=== PATIENT | female | born 1975 | race Caucasian/White ===

== ENCOUNTER → 2018-02-22 | Outpatient (CLI) | payer BC ==
[2013-06-20 21:41] VITALS: BP 134/93
[~2018-02-22] MED LIST: SERTRALINE PO; SPRINTEC 35 MCG1 TAB PO
[2018-02-22 17:54] LABS: CLUE CELLS PRESENT (Not Observd)
== END ==
LOC: LAB 17:34
PROVIDERS: Nurse Practitioner Family
DX: N76.0 Acute vaginitis (principal)
CPT/HCPCS: Q0111

== ENCOUNTER → 2018-11-30 | Outpatient (CLI) | payer BC ==
[2013-06-20 21:41] VITALS: BP 134/93
[2018-11-30 17:24] LABS: CLUE CELLS PRESENT (Not Observd)
== END ==
LOC: LAB 15:46
PROVIDERS: Nurse Practitioner
DX: N76.0 Acute vaginitis (principal); N89.8 Other specified noninflammatory disorders of vagina
CPT/HCPCS: Q0111

== ENCOUNTER → 2019-02-16 | Outpatient (CLI) | payer BC ==
[2013-06-20 21:41] VITALS: BP 134/93
== END ==
LOC: MAMMO 08:28
DX: Z12.31 Encounter for screening mammogram for malignant neoplasm of breast (principal)

== ENCOUNTER → 2019-07-13 | Outpatient (CLI) | payer BC ==
[2013-06-20 21:41] VITALS: BP 134/93
[2019-07-13 16:13] LABS: BASO # 0.1 (0.02-0.10); EOS # 0.5 (0.04-0.40); EOS % 5.8 % (1.0-5.0); HEMATOCRIT 39.8 % (37.0-47.0); HEMOGLOBIN 12.6 g/dL (12.5-16.0); LYMPH# 2.1 (1.50-4.00); MEAN CELL VOLUME 84 fl (78-100); MEAN CORPUSCULAR HEMOGLOBIN 27 pg (27-31); MEAN CORPUSCULAR HGB CONC 32 g/dL (33-37); MEAN PLATELET VOLUME 9.6 fl (7.4-10.4); MONO # 0.6 (0.20-0.80); NEU # 4.7 (1.40-6.50); PLATELET COUNT 281 K/mm3 (130-400); RED BLOOD COUNT 4.73 M/mm3 (4.10-5.30); RED CELL DISTRIBUTION WIDTH 13.7 % (11.5-14.5)
[2019-07-13 16:33] LABS: ALBUMIN 4.2 g/dL (3.5-5.0); POTASSIUM 3.6 mmol/L (3.5-5.1)
[2019-07-13 16:35] LABS: CALCIUM 9.1 mg/dL (8.3-10.5)
[2019-07-13 16:36] LABS: TOTAL PROTEIN 7.3 g/dL (6.4-8.3)
[2019-07-13 16:38] LABS: TOTAL BILIRUBIN 0.2 mg/dL (0.2-1.2)
== END ==
LOC: LAB 16:01
PROVIDERS: Internal Medicine Gastroenterology
DX: R10.84 Generalized abdominal pain (principal); R19.7 Diarrhea, unspecified; R14.0 Abdominal distension (gaseous)

== ENCOUNTER → 2020-02-28 | Outpatient (CLI) | payer BC ==
[2013-06-20 21:41] VITALS: BP 134/93
== END ==
LOC: MAMMO 10:33
DX: Z12.31 Encounter for screening mammogram for malignant neoplasm of breast (principal)

== ENCOUNTER → 2020-03-22 | Outpatient (CLI) | payer BC ==
[2013-06-20 21:41] VITALS: BP 134/93
[2020-03-22 15:46] LABS: CLUE CELLS NOT OBSERVED (Not Observd)
== END ==
LOC: LAB 15:37
PROVIDERS: Family Medicine
DX: N76.0 Acute vaginitis (principal)
CPT/HCPCS: Q0111

== ENCOUNTER → 2020-07-31 | Outpatient (CLI) | payer BC ==
[2013-06-20 21:41] VITALS: BP 134/93
[2020-07-31 08:04] LABS: BASO # 0.1 (0.02-0.10); EOS # 0.3 (0.04-0.40); HEMATOCRIT 40.7 % (37.0-47.0); LYMPH# 1.7 (1.50-4.00); MEAN CELL VOLUME 84 fl (78-100); MEAN CORPUSCULAR HEMOGLOBIN 27 pg (27-31); MEAN CORPUSCULAR HGB CONC 32 g/dL (33-37); MONO # 0.5 (0.20-0.80); NEU # 3.7 (1.40-6.50); PLATELET COUNT 292 K/mm3 (130-400); RED BLOOD COUNT 4.84 M/mm3 (4.10-5.30); RED CELL DISTRIBUTION WIDTH 14.4 % (11.5-14.5); WHITE BLOOD COUNT 6.2 K/mm3 (4.8-10.8)
[2020-07-31 08:15] LABS: ALBUMIN 3.9 g/dL (3.5-5.0); POTASSIUM 4.4 mmol/L (3.5-5.1)
[2020-07-31 08:16] LABS: CALCIUM 9.4 mg/dL (8.3-10.5)
[2020-07-31 08:17] LABS: TOTAL PROTEIN 7.1 g/dL (6.4-8.3)
[2020-07-31 08:19] LABS: TOTAL BILIRUBIN 0.4 mg/dL (0.2-1.2)
== END ==
LOC: LAB 07:52
PROVIDERS: Physician Assistant
DX: Z00.00 Encounter for general adult medical examination without abnormal findings (principal)

== ENCOUNTER → 2022-02-14 | Outpatient (CLI) | payer BC ==
[2022-02-14 08:36] LABS: BASO # 0.06 K/mm3 (0.02-0.10); HEMATOCRIT 42.7 % (37.0-47.0); HEMOGLOBIN 14.1 g/dL (12.5-16.0); LYMPH# 1.85 K/mm3 (1.50-4.00); MEAN CELL VOLUME 87 fl (78-100); MEAN CORPUSCULAR HEMOGLOBIN 29 pg (27-31); MEAN CORPUSCULAR HGB CONC 33 g/dL (33-37); MEAN PLATELET VOLUME 8.9 fl (7.4-10.4); MONO # 0.48 K/mm3 (0.20-0.80); NEU # 5.42 K/mm3 (1.40-6.50); PLATELET COUNT 300 K/mm3 (130-400); RED BLOOD COUNT 4.91 M/mm3 (4.10-5.30); RED CELL DISTRIBUTION WIDTH 12.6 % (11.5-14.5); WHITE BLOOD COUNT 8.3 K/mm3 (4.8-10.8)
[2022-02-14 08:42] LABS: POTASSIUM 4.3 mmol/L (3.5-5.1)
[2022-02-14 08:45] LABS: TOTAL PROTEIN 7.4 g/dL (6.4-8.3)
[2022-02-14 08:46] LABS: TOTAL BILIRUBIN 0.3 mg/dL (0.2-1.2)
== END ==
LOC: LAB 08:16
PROVIDERS: Physician Assistant
DX: Z00.00 Encounter for general adult medical examination without abnormal findings (principal); Z13.29 Encounter for screening for other suspected endocrine disorder; Z13.1 Encounter for screening for diabetes mellitus; K58.9 Irritable bowel syndrome, unspecified; I10 Essential (primary) hypertension; F41.8 Other specified anxiety disorders; K90.9 Intestinal malabsorption, unspecified

== ENCOUNTER → 2022-04-29 | Outpatient (CLI) | payer BC | LOC: MAMMO 08:14 | DX: Z12.31 Encounter for screening mammogram for malignant neoplasm of breast (principal) ==

== ENCOUNTER → 2023-06-11 | Outpatient (CLI) | payer BC | LOC: MAMMO 09:13 | DX: Z12.31 Encounter for screening mammogram for malignant neoplasm of breast (principal); N64.89 Other specified disorders of breast ==

== ENCOUNTER → 2024-09-07 | Outpatient (CLI) | payer BC ==
[2024-09-07 08:58] LABS: BASO # 0.04 K/mm3 (0.02-0.10); EOS % 6.6 % (1.0-5.0); HEMATOCRIT 38.3 % (37.0-47.0); HEMOGLOBIN 12.4 g/dL (12.5-16.0); LYMPH# 1.71 K/mm3 (1.50-4.00); MEAN CELL VOLUME 84 fl (78-100); MEAN CORPUSCULAR HEMOGLOBIN 27 pg (27-31); MEAN CORPUSCULAR HGB CONC 32 g/dL (33-37); MONO # 0.54 K/mm3 (0.20-0.80); NEU # 4.75 K/mm3 (1.40-6.50); PLATELET COUNT 273 K/mm3 (130-400); RED BLOOD COUNT 4.54 M/mm3 (4.10-5.30); RED CELL DISTRIBUTION WIDTH 12.8 % (11.5-14.5); WHITE BLOOD COUNT 7.6 K/mm3 (4.8-10.8)
[2024-09-07 09:06] LABS: ALBUMIN 4.3 g/dL (3.5-5.0)
[2024-09-07 09:07] LABS: CALCIUM 9.9 mg/dL (8.3-10.5)
[2024-09-07 09:09] LABS: TOTAL PROTEIN 7.9 g/dL (6.4-8.3)
[2024-09-07 09:10] LABS: TOTAL BILIRUBIN 0.3 mg/dL (0.2-1.2)
[2024-09-07 22:49] LABS: FOLLICLE STIMULATING HORMONE 15.9 mIU/mL (()); LUTENIZING HORMONE 14.8 mIU/mL (()); PROGESTERONE 9.8 ng/mL (())
== END ==
LOC: LAB 08:34
PROVIDERS: Physician Assistant
DX: I10 Essential (primary) hypertension (principal); N95.1 Menopausal and female climacteric states; E78.5 Hyperlipidemia, unspecified